=== PATIENT | female | born 1995 | race Caucasian/White ===

== ENCOUNTER 2022-07-04 11:40 | Outpatient (CLI) | payer MEDICAID, SELFPAY | END 2022-07-04 11:41 | disposition home or self-care (01) | LOC: NFLDREF 15:39 | PROVIDERS: PCP Family Medicine; Referring Provider Family Medicine; Visit Provider Family Medicine | DX: E03.9 Hypothyroidism, unspecified (principal); Z13.1 Encounter for screening for diabetes mellitus; Z13.6 Encounter for screening for cardiovascular disorders | CPT/HCPCS: 80061; 82947; 84439; 84443 ==

== ENCOUNTER 2022-12-26 15:10 | Outpatient (CLI) | payer SELFPAY | END 2022-12-26 15:11 | disposition home or self-care (01) | LOC: NFLDREF 12-29 17:45 | PROVIDERS: PCP Family Medicine; Referring Provider Family Medicine; Visit Provider Family Medicine | DX: E03.9 Hypothyroidism, unspecified (principal) | CPT/HCPCS: 84439; 84443 ==

== ENCOUNTER 2023-04-02 10:42 | Outpatient (CLI) | payer OTHER, SELFPAY | END 2023-04-02 10:43 | disposition home or self-care (01) | LOC: FBOREF 10:42 | PROVIDERS: PCP Family Medicine; Visit Provider Family Medicine | DX: E03.9 Hypothyroidism, unspecified (principal) | CPT/HCPCS: 84439; 84443 ==

== ENCOUNTER 2023-06-26 11:21 | Outpatient (CLI) | payer OTHER, SELFPAY | END 2023-06-26 11:22 | disposition home or self-care (01) | LOC: FBOREF 11:21 | PROVIDERS: PCP Family Medicine; Visit Provider Family Medicine | DX: E03.9 Hypothyroidism, unspecified (principal) | CPT/HCPCS: 84439; 84443 ==

== ENCOUNTER 2024-02-13 09:06 | Outpatient (CLI) | payer OTHER, SELFPAY | END 2024-02-13 09:07 | disposition home or self-care (01) | LOC: NFLDREF 13:29 | PROVIDERS: PCP Family Medicine; Referring Provider Family Medicine; Visit Provider Family Medicine | DX: E03.9 Hypothyroidism, unspecified (principal); Z13.1 Encounter for screening for diabetes mellitus; Z13.220 Encounter for screening for lipoid disorders | CPT/HCPCS: 80061; 82947; 84439; 84443 ==

== ENCOUNTER 2024-07-01 08:53 | Outpatient (CLI) | payer OTHER, SELFPAY | END 2024-07-01 08:54 | disposition home or self-care (01) | LOC: NFLDREF 07-04 19:49 | PROVIDERS: PCP Family Medicine; Referring Provider Family Medicine; Visit Provider Family Medicine | DX: E03.9 Hypothyroidism, unspecified (principal) | CPT/HCPCS: 84443 ==